=== PATIENT | male | born 1970 | race Asian ===

== ENCOUNTER 2017-07-05 10:46 | Emergency (ER) | payer OTHER ==
[~2017-07-05] VITALS: Ht 162.6 cm; Wt 82.1 kg
[2017-07-05 10:48] VITALS: Ht 162.6 cm; Wt 82.1 kg
[2017-07-05 11:46] VITALS: BP 125/71
== END 2017-07-05 11:46 | disposition home or self-care (01) ==
LOC: ED 10:46
DX: S01.112A Laceration without foreign body of left eyelid and periocular area, initial encounter (principal); W21.07XA Struck by softball, initial encounter; Y93.64 Activity, baseball; Y99.8 Other external cause status; Y92.89 Other specified places as the place of occurrence of the external cause
CPT/HCPCS: 90714; J2001